=== PATIENT | female | born 1995 | race Caucasian/White ===

== ENCOUNTER 2017-12-03 15:13 | Emergency (ER) | payer BC ==
[~2017-12-03] VITALS: Ht 157.5 cm; Wt 63.1 kg
[2017-12-03 15:15] VITALS: TEMP 36.7; Ht 157.5 cm; Wt 63.1 kg
[2017-12-03] MEDS ORDERED: BCPILLS PO (15:35)
[2017-12-03] MEDS ORDERED: RABIES VACCINE (IMOVAX) HUMAN DIPL CELL 2.5 INTER.UNIT/ML SYR IM. ONE (16:15)
[2017-12-03] MEDS ORDERED: RABIES IMMUNE GLOBULIN (HUMAN) 150 INTER.UNIT/ML 2 ML VIAL IM. ONE (16:15)
[2017-12-03] MEDS ORDERED: VALA1TAB2 PO (16:52)
--- NOTE | 2017-12-03 16:57 | EMERGENCY ROOM VISIT NOTE ---
ED Visit Note First contact with patient: 15:20 CHIEF COMPLAINT: Monkey bite HISTORY OF PRESENT ILLNESS: This 22-year-old female patient presents to the emergency department approximately 1 month after they sustained a monkey bite to the right hand. The patient states she was traveling in [facility], and visiting and open air Thursday. She states she apparently provoked the monkey to bite her when she looked in the eye. She states it was a Bolognese long detailed monkey. She sustained a bite on the dorsal aspect of the right hand, and states the bite healed quickly within a few days. She did immediately cleanse the wound with soap, water, and an alcohol swab, and covered it with Neosporin and a bandage. She denies any redness, drainage, or warmth at the site of the bite. She denies any recent fevers, chills, sweats, body aches, appetite changes, difficulty sleeping, headaches, lightheadedness, dizziness, dyspnea, chest pain, nausea, vomiting, or diarrhea. She denies any changes in vision or unsteadiness of gait. She denies any foaming at the mouth. The patient was told by the employees and [place] at the exhibit that the monkeys are all tested and there are no concerns related to the bite. The patient's mother has been on the Internet, and became concerned, and requested that the patient be evaluated. The patient was at [facility] prior to coming to the emergency department. [facility] contacted the CDC, and did recommend rabies vaccination. The patient is here for rabies vaccine. She denies any symptoms. Tetanus vaccination is up-to- date. She was told that the animals immunizations are up-to-date as well. REVIEW OF SYSTEMS: A 6 system review of systems was completed with positives and pertinent negatives listed in the HPI. ALLERGIES: None MEDICATIONS: None PMH: None PHYSICAL EXAM: Vital Signs reviewed, see Nurse's notes, vital signs stable. GENERAL: This is a 22-year-old female, awake, alert, well appearing, no acute distress. Non toxic in appearance. HEAD: Normocephalic atraumatic. EARS: External auditory canals clear, tympanic membranes pearly ashley without erythema or effusion bilaterally. EYES: Pupils equal round and reactive to light and accommodation. Conjunctivae without injection, sclerae without icterus. Extraocular movements intact. NOSE: Patent, turbinates without inflammation or discharge. No sinus tenderness. MOUTH: Mucous membranes moist. Tonsils are not enlarged. Pharynx without erythema or exudate. Uvula midline. Airway patent. Tongue does not deviate. NECK: Supple without nuchal rigidity. No lymphadenopathy. No thyromegaly. Cervical spine is nontender. No JVD. HEART: Regular rate and rhythm without murmurs gallops or rubs. LUNGS: Clear to auscultation bilaterally without wheezes, rales or rhonchi. No dullness to percussion. No retractions or accessory muscle use. MUSCULOSKELETAL: Examination of the right hand reveals a healed, mildly erythematous, closed wound. There is no swelling on inspection. Palpation of the extremity reveals no tenderness. No significant crepitus or warmth noted. No joint space, tendon, or vascular involvement. Distal pulses intact. SKIN: No signs of infection. NEURO: The patient is alert, oriented to person place and time, and coherent. Normal mini mental status exam. Negative Romberg and pronator drift. Cerebellar function intact. EMERGENCY DEPARTMENT COURSE AND DECISION MAKING: I examined the patient. The patient presented with an isolated bite wound as described as above. [facility] was contacted to discuss any rabies or other concerns due to a monkey bite. Was recommended that the patient gets rabies prophylaxis , despite the amount of time between the bite and decision to seek care. There is also a small concern for possible herpes B virus from a monkey bite, so they did recommend prophylaxis with antiviral medications. I did offer these treatments to the patient, and she did decide to have both rabies prophylaxis and herpes the viral prophylaxis at this time. I did discuss the importance with close follow-up. No signs of infection on examination. The patient was given Imovax and Imogam for rabies prophylaxis. She was monitored for 20 minutes without adverse reaction. Discharge instructions reviewed. The patient was discharged home in good condition. I attest that I have personally reviewed the patient's current medication list. Patient was found to have normal blood pressure on screening and does not require follow-up. Differential diagnosis includes infection, cellulitis, abscess, fracture, herpes B virus, rabies, and others DIAGNOSIS: Monkey bite, need for prophylactic rabies vaccination The chart was completed utilizing [employer] voice recognition software. Grammatical errors, random word insertions, pronoun errors, and incomplete sentences are an occasional consequence of this system due to software limitations, ambient noise, and hardware issues. Any formal questions or concerns about the content, text, or information contained within the body of this dictation should be directly addressed to the provider for clarification. Current/Historical Medications Scheduled Control Pills ( Control Pills), 1 TAB PO DAILY Valacyclovir Hcl (Valtrex), 1,000 MG PO TID Allergies Coded Allergies: No Known Allergies (Unverified , 12/03/17) Vital Signs Date Time Temp Pulse Resp B/P (MAP) Pulse Ox O2 Delivery O2 Flow Rate FiO2 12/03/17 17:03 80 14 140/93 100 Room Air 12/03/17 15:15 36.7 83 20 141/93 100 Room Air Medications Administered Medications (Trade) Dose Ordered Sig/Syed Route Start Time Stop Time Status Last Admin Dose Admin Rabies Vaccine Human Diploid Cell (Imovax Rabies) 2.5 interunit ONCE ONCE IM. 12/03/17 16:15 12/03/17 16:16 DC 12/03/17 16:45 2.5 INTERUNIT Rabies Immune Globulin (Imogam Rabies Inj) 1,200 interunit ONCE ONCE IM. 12/03/17 16:15 12/03/17 16:16 DC 12/03/17 16:45 1,200 INTERUNIT Departure Information Impression Primary Impression: Bite by animal Additional Impressions: Encounter for prophylactic rabies immune globin Rabies, need for prophylactic vaccination against Dispostion Home / Self-Care Condition GOOD Prescriptions Valacyclovir Hcl (VALTREX) 1 Gm Tab 1000 MG PO TID for 14 Days, #42 TAB Prov: Jennifer Tapia PA-C 12/03/17 Referrals [facility] (PCP) Patient Instructions My [facility], Rabies Additional Instructions You were seen in the emergency room today for a monkey bite. You were given your first rabies vaccination. Today is day 0. You must return on days 3, 7, and 14 for follow-up Imovax injections. You were given a prescription for valacyclovir to be taken 1 tablet 3 times per day for 14 days. This is a preventative for herpes B virus, which has been known to be spread from monkey bites. Please monitor for any signs of GI upset. Ibuprofen(Motrin, Advil) may be used for fever or pain. Use 600mg every six hours as needed. Take with food. Avoid using more than 2400mg in a 24 hour period. Do not use 2400mg per day for more than three consecutive days without physician direction. Prolonged inappropriate use can lead to stomach upset or ulcers. (AND/OR) Acetaminophen(Tylenol) may be used for fever or pain. Use 1000mg every six hours as needed. Avoid using more than 3000mg in a 24 hour period. Monitor for fevers, myalgias, or other viral type symptoms. If these occur, return immediately to the emergency department. Return to the emergency department for any concerning symptoms. You can find information related to Herpes B Virus on the CDC website. Search for Herpes B on the cdc.gov website. Problem Qualifiers
[2017-12-03 17:03] VITALS: BP 140/93; PULSE 80; O2SAT 100
== END 2017-12-03 17:11 | disposition home or self-care (01) ==
LOC: C.EDB 15:16 → C.EDD 17:11
DX: S61.451D Open bite of right hand, subsequent encounter (principal); W55.81XD Bitten by other mammals, subsequent encounter; Z23 Encounter for immunization; Z20.3 Contact with and (suspected) exposure to rabies

== ENCOUNTER 2017-12-06 15:58 | Emergency (ER) | payer BC ==
[~2017-12-06] VITALS: Ht 157.5 cm; Wt 64.8 kg
[~2017-12-06 15:58] MED LIST: BCPILLS PO; VALA1TAB2 PO
[2017-12-06 16:03] VITALS: BP 144/84; TEMP 36.7; Ht 157.5 cm; Wt 64.8 kg
[2017-12-06] MEDS ORDERED: RABIES VACCINE (IMOVAX) HUMAN DIPL CELL 2.5 INTER.UNIT/ML SYR IM. ONE (16:30)
[2017-12-06] MEDS ORDERED: VALA1TAB31 PO (16:48)
[2017-12-06 17:18] VITALS: PULSE 78; O2SAT 99
--- NOTE | 2017-12-06 17:25 | EMERGENCY ROOM VISIT NOTE ---
History First contact with patient: 16:27 Chief Complaint: RABIES VACCINE REPEAT VISIT Stated Complaint: RABIES VACCINE History of Present Illness The patient is a 22 year old female who presents to the Emergency Room for repeat Imovax injection. The patient denies any adverse reactions to her prior injections, and has been tolerating her oral Valtrex well. Review of Systems 6 system review was performed and was negative except for pertinent positives and negatives as indicated in history of present illness Past Medical/Surgical History Medical Problems: (1) No significant past medical history Surgical Problems: (1) History of rhinoplasty Family History FH: cancer FH: diabetes mellitus FH: hypertension FH: kidney disease Social History Smoking Status: Never Smoker Alcohol Use: occasionally Marital Status: single Occupation Status: [employer] student Current/Historical Medications Scheduled Control Pills ( Control Pills), 1 TAB PO DAILY Valacyclovir Hcl (Valtrex), 1 GM PO TID Physical Exam Vital Signs Date Time Temp Pulse Resp B/P (MAP) Pulse Ox O2 Delivery O2 Flow Rate FiO2 12/06/17 17:18 78 18 99 12/06/17 16:03 36.7 82 20 144/84 99 Room Air Physical Exam CONSTITUTIONAL: Healthy and well nourished. Patient does not appear in any acute distress. HEENT: Normocephalic, atraumatic. Pupils equal, round and reactive. No scleral icterus or conjunctival injection. INTEGUMENTARY: No rash or other significant dermatologic conditions noted. Examination of the left dorsal hand shows complete healing of the prior monkey bite. NEUROLOGIC: No focal neurologic deficits noted. Medical Decision & Procedures Medications Administered Medications (Trade) Dose Ordered Sig/Syed Route Start Time Stop Time Status Last Admin Dose Admin Rabies Vaccine Human Diploid Cell (Imovax Rabies) 2.5 interunit ONCE ONCE IM. 12/06/17 16:30 12/06/17 16:31 DC 12/06/17 16:44 2.5 INTERUNIT ED Course Patient history and physical exam were performed. Nurse's notes were reviewed. Vital signs were reviewed and were normal. The patient received Imovax without adverse reaction. The patient was instructed to return on day 7 for her next Imovax injection, sooner with any adverse reaction. The patient denied any pain at the time of discharge. Medical Decision Blood Pressure Screening Patient's blood pressure: Normal blood pressure Impression Primary Impression: Rabies, need for prophylactic vaccination against Departure Information Dispostion Home / Self-Care Forms HOME CARE DOCUMENTATION FORM, IMPORTANT VISIT INFORMATION Patient Instructions My [facility] Additional Instructions Return on 12/10 for your next Imovax injection
== END 2017-12-06 17:18 | disposition home or self-care (01) ==
LOC: C.EDB 15:59 → C.EDD 17:18
DX: Z23 Encounter for immunization (principal); Z20.3 Contact with and (suspected) exposure to rabies

== ENCOUNTER 2017-12-10 15:48 | Emergency (ER) | payer BC ==
[~2017-12-10] VITALS: Ht 157.5 cm; Wt 64.6 kg
[~2017-12-10 15:48] MED LIST changes: -VALA1TAB2 PO; +VALA1TAB31 PO
[2017-12-10 16:01] VITALS: BP 143/88; PULSE 75; TEMP 36.8; O2SAT 99; Ht 157.5 cm; Wt 64.6 kg
[2017-12-10] MEDS ORDERED: RABIES VACCINE (IMOVAX) HUMAN DIPL CELL 2.5 INTER.UNIT/ML SYR IM. ONE (16:15)
--- NOTE | 2017-12-10 23:32 | EMERGENCY ROOM VISIT NOTE ---
ED Visit Note First contact with patient: 16:04 Chief Complaint: Rabies repeat visit note. History of Present Illness: Ms. Velazquez is a 22-year-old female who ambulates into the ED requesting her third immunization vaccination against rabies. Patient reports she has had no previous adverse reactions to her rabies immunizations. She also reports she is feeling well today and denies fevers, chills, sweats, skin eruptions, abdominal pain, nausea, vomiting. Review of Systems: As noted above in history of present illness. Past Medical History, Current Medications, Allergies to Medications, Social History: As previously noted Physical Examination: Vital Signs: Date Time Temp Pulse Resp B/P (MAP) Pulse Ox O2 Delivery O2 Flow Rate FiO2 12/10/17 16:01 36.8 75 18 143/88 99 Room Air GENERAL: 22-year-old female in acute distress, nontoxic-appearing, afebrile and hemodynamically stable. NEUROLOGICAL: Awake, alert and oriented to person, place and time. Answering questions appropriately and following commands. ED Course: Patient is assessed as noted above. Patient's medication list was reviewed. Patient was given 2.5 units of rabies vaccination IM. Patient was educated about today's findings and instructed on her treatment plan ; she verbalized understanding and agreement with this plan. Clinical Impression: Rabies vaccination. Disposition: Patient discharged home in stable condition; prior to departure she was reassessed and subjectively reported she was pain and symptom-free. Plan: Patient was encouraged to continue her current treatment plan as previously provided. Patient was encouraged return to the ED for any adverse reactions that were previously defined or any new/concerning symptoms.
== END 2017-12-10 16:41 | disposition home or self-care (01) ==
LOC: C.EDB 15:49 → C.EDD 16:41
DX: Z23 Encounter for immunization (principal); Z20.3 Contact with and (suspected) exposure to rabies

== ENCOUNTER 2017-12-17 19:31 | Emergency (ER) | payer BC ==
[~2017-12-17] VITALS: Ht 157.5 cm; Wt 64.2 kg
[2017-12-17 19:33] VITALS: TEMP 36.6; Ht 157.5 cm; Wt 64.2 kg
--- NOTE | 2017-12-17 20:10 | EMERGENCY ROOM VISIT NOTE ---
ED Visit Note First contact with patient: 19:59 CHIEF COMPLAINT: Rabies vaccine repeat visit HISTORY OF PRESENT ILLNESS: This 22 year old female patient presents to the emergency department via private vehicle accompanied by male for their final rabies shot. The patient has not had any complications from the previous injections. They deny any other complaints. REVIEW OF SYSTEMS: A 6 system review of systems was completed with positives and pertinent negatives listed in the HPI. ALLERGIES: As noted below MEDICATIONS: Valtrex and control pills. PMH: Unchanged from previous visit. PHYSICAL EXAM: Vital Signs: Reviewed Nurse's notes, vital signs stable. GENERAL : 22-year-old female, in no acute distress, well-developed, well-nourished. HEAD: Atraumatic, without temporal or scalp tenderness. EYES: PERRLA, EOMI, no discharge or injection. SKIN: Normal. NEUROLOGICAL: Alert and cooperative. Sensory and motor functions grossly intact. EMERGENCY DEPARTMENT COURSE: I examined the patient. The patient was given 2.5 in her unit of Imovax IM. The patient was observed for 20 minutes with no reaction. The patient was discharged home in stable condition. Current/Historical Medications Scheduled Control Pills ( Control Pills), 1 TAB PO DAILY Valacyclovir Hcl (Valtrex), 1 GM PO TID Allergies Coded Allergies: No Known Allergies (Unverified , 12/10/17) Vital Signs Date Time Temp Pulse Resp B/P (MAP) Pulse Ox O2 Delivery O2 Flow Rate FiO2 12/17/17 21:20 91 18 146/86 99 12/17/17 19:33 36.6 88 18 155/93 96 Room Air Medications Administered Medications (Trade) Dose Ordered Sig/Syed Route Start Time Stop Time Status Last Admin Dose Admin Rabies Vaccine Human Diploid Cell (Imovax Rabies) 2.5 interunit ONCE ONCE IM. 12/17/17 20:15 12/17/17 20:16 DC 12/17/17 21:01 2.5 INTERUNIT Departure Information Impression Primary Impression: Rabies, need for prophylactic vaccination against Dispostion Home / Self-Care Condition GOOD Referrals No Doctor, Assigned (PCP) Patient Instructions My [facility] Additional Instructions Today was your last rabies series vaccination. I do recommend watching for signs of infection from the bite to include redness , swelling, drainage or infection. Please continue your normal medications. Please return with any new/concerning symptoms. Thank you for your time.
[2017-12-17] MEDS ORDERED: RABIES VACCINE (IMOVAX) HUMAN DIPL CELL 2.5 INTER.UNIT/ML SYR IM. ONE (20:15)
[2017-12-17 21:20] VITALS: BP 146/86; PULSE 91; O2SAT 99
== END 2017-12-17 21:00 | disposition home or self-care (01) ==
LOC: C.EDB 19:32 → C.EDD 21:00
DX: Z23 Encounter for immunization (principal); Z20.3 Contact with and (suspected) exposure to rabies; Z79.899 Other long term (current) drug therapy; Z79.3 Long term (current) use of hormonal contraceptives